=== PATIENT | male | born 1965 | race Two or more races ===

== ENCOUNTER 2020-05-06 20:53 | Inpatient (IN) | payer MEDICAID, OTHER ==
[~2020-05-06] VITALS: Ht 170.2 cm; Wt 61.7 kg
[2020-05-06] MEDS ORDERED: SODIUM CHLORIDE 0.9% 1,000 ML IV ONE (21:22)
[2020-05-06] MEDS ORDERED: ONDANSETRON HCL 4MG/2ML INJ IV STA (21:22)
[2020-05-06] MEDS ORDERED: ACTIVATED CHARCOAL 50 G/240 ML TUBE PO ONE (21:30)
[2020-05-06 21:49] LABS: CHLORIDE 102 mEq/L (98-107)
[2020-05-06 21:54] LABS: ETHANOL BLOOD < 10 mg/dL
[2020-05-06 23:08] LABS: CLARITY URINE CLEAR (CLEAR); COLOR URINE YELLOW (YELLOW); KETONES URINE NEGATIVE (NEGATIVE); LEUKOCYTE ESTERASE URINE NEGATIVE (NEGATIVE); NITRITE URINE NEGATIVE (NEGATIVE); OCCULT BLOOD URINE NEGATIVE (NEGATIVE); PH URINE 6.5 (4.5-8.0); PROTEIN URINE TRACE (NEGATIVE); SPECIFIC GRAVITY URINE 1.029 (1.005-1.030)
[2020-05-06 23:28] LABS: *AMPHETAMINES SCREEN URINE PRESUMTIVE POSITIVE (NEGATIVE); *BARBITURATES SCREEN URINE NEGATIVE (NEGATIVE); *BENZODIAZEPINES SCREEN URINE NEGATIVE (NEGATIVE); *COCAINE SCREEN URINE NEGATIVE (NEGATIVE); METHADONE URINE SCREEN NEGATIVE (NEGATIVE)
[2020-05-06 23:29] LABS: CANNABINOID URINE SCREEN NEGATIVE (NEGATIVE); OPIATES URINE SCREEN NEGATIVE (NEGATIVE); PHENCYCLIDINE URINE SCREEN NEGATIVE (NEGATIVE)
[2020-05-06 23:31] LABS: BASOPHILS % 0.5 % (0.0-2.0); EOSINOPHILS % 1.1 % (0.0-5.0); HEMATOCRIT. 42.6 % (42.0-52.0); HEMOGLOBIN. 15.1 g/dL (14.0-18.0); LYMPHOCYTES % 18.2 % (20.0-50.0); MEAN CORPUSCULAR HEMOGLOBIN 33.4 pg (28.0-32.0); MEAN CORPUSCULAR VOLUME 94.4 fL (80.0-94.0); MEAN PLATELET VOLUME 11.6 fl (7.4-10.4); MONOCYTES % 10.7 % (2.0-8.0); NEUTROPHILS % 69.5 % (40.0-76.0); RED BLOOD CELL COUNT 4.52 mill/uL (4.7-6.1); RED CELL DISTRIBUTION WIDTH 12.3 % (11.6-14.6)
[2020-05-06 23:39] LABS: PLATELET 37 x1000/uL (130-400)
[2020-05-07] MEDS ORDERED: PROPOFOL 10MG/ML 100ML 100 ML IV SCH
[2020-05-07] MEDS ORDERED: LACTULOSE 20G/30ML UDC PO ONE (00:15)
[2020-05-07] MEDS ORDERED: ASPIRIN 81MG TABLET PO ONE (00:15)
[2020-05-07 02:08] LABS: PLATELET ESTIMATE MARKEDLY DECREASED
[2020-05-07] MEDS ORDERED: DEXTROSE 50% WATER 50ML SYRINGE IV PRN (20:45)
[2020-05-07] MEDS: BLOOD SUGAR DIAGNOSTIC STRIP TEST SCH (21:00)
[2020-05-07] MEDS: ARIPIPRAZOLE 5MG TABLET PO SCH (21:42)
[2020-05-07] MEDS: RISPERIDONE 1MG TABLET PO SCH (21:42)
[2020-05-07] MEDS: INSULIN LISPRO 100 UNITS/ML SUBCUT SCH (22:16)
[2020-05-07 23:52] VITALS: BP 110/76
[2020-05-08] MEDS ORDERED: ESCI5TAB12 PO (02:11)
[2020-05-08] MEDS ORDERED: BENA10TA74 PO (02:12)
[2020-05-08] MEDS ORDERED: VALA500T55 PO (02:12)
[2020-05-08] MEDS ORDERED: OMEG-31 PO (02:15)
[2020-05-08] MEDS ORDERED: METF-815 PO (02:15)
[2020-05-08] MEDS ORDERED: RISP2TAB22 PO (02:16)
[2020-05-08] MEDS ORDERED: FAMO20TA8 PO (02:18)
[2020-05-08] MEDS ORDERED: BICT1TAB PO (02:19)
[2020-05-08] MEDS ORDERED: ATOR10TA69 PO (02:20)
[2020-05-08] MEDS ORDERED: ARIP10TA16 PO (02:21)
[2020-05-08 04:00] VITALS: BP 101/69
[2020-05-08] MEDS: BLOOD SUGAR DIAGNOSTIC STRIP TEST SCH ×2 (06:16→12:36)
[2020-05-08] MEDS: INSULIN LISPRO 100 UNITS/ML SUBCUT SCH ×2 (06:46→12:39)
[2020-05-08] MEDS ORDERED: METFORMIN HCL 500MG TABLET PO SCH (07:40)
[2020-05-08 08:00] VITALS: BP 106/71
[2020-05-08] MEDS: RISPERIDONE 1MG TABLET PO SCH ×2 (09:00→09:37)
[2020-05-08] MEDS: ARIPIPRAZOLE 5MG TABLET PO SCH ×2 (09:00→09:36)
[2020-05-08] MEDS: CITALOPRAM HYDROBROMIDE 10MG TABLET PO SCH ×2 (09:00→09:37)
[2020-05-08 09:06] LABS: T4 FREE 1.1 ng/dL (0.76-1.46)
[2020-05-08 11:45] VITALS: BP 107/68
[2020-05-08] MEDS ORDERED: METFORMIN HCL 2000 MG PO SCH (13:00)
[2020-05-08] MEDS ORDERED: FISH OIL/OMEGA-3 FATTY ACIDS 1000MG CAPSULE PO SCH (13:00)
[2020-05-08] MEDS ORDERED: MEDICATION NOT ON FORMULARY EA (Bictegrav/Emtricit/Tenofov Ala (Biktarvy 50-200-25 mg Ta PO SCH (13:00)
[2020-05-08] MEDS ORDERED: BENAZEPRIL 10MG TABLET PO SCH (13:00)
[2020-05-08] MEDS ORDERED: ATORVASTATIN CALCIUM 10MG TABLET PO SCH (13:00)
[2020-05-08] MEDS ORDERED: FAMOTIDINE 20MG TABLET PO SCH (13:08)
[2020-05-08] MEDS ORDERED: GLIPIZIDE XL 2.5MG TABLET PO SCH (14:30)
[2020-05-08] MEDS ORDERED: VALACYCLOVIR HCL 500MG TABLET PO SCH (15:00)
[2020-05-08 16:09] VITALS: BP 106/64
[2020-05-08] MEDS ORDERED: MEDICATION NOT ON FORMULARY EA (Escitalopram Oxalate 5 MG) PO SCH (21:00)
[2020-05-08] MEDS ORDERED: RISPERIDONE 1MG TABLET PO SCH (21:00)
[2020-05-08] MEDS ORDERED: ARIPIPRAZOLE 10 MG PO SCH (21:00)
[2020-05-08] MEDS ORDERED: ARIPIPRAZOLE 5MG TABLET PO SCH (21:00)
[2020-05-08] MEDS ORDERED: CITALOPRAM HYDROBROMIDE 10MG TABLET PO SCH (21:00)
== END 2020-05-08 16:55 | disposition home or self-care (01) | DRG 812 ==
LOC: ER 20:53 → EDBEDREQ 05-07 00:10 → EDBEDREQTM 05-07 00:10 → EDBEDREQDT 05-07 00:10 → EDBEDREQ 05-07 00:11 → 8WST 05-07 13:30 → EDBEDREQ 05-07 13:36 → ENRESERV 05-07 22:42
PROVIDERS: ADMIT Family Medicine; ATTEND Family Medicine
DX: T43.621A Poisoning by amphetamines, accidental (unintentional), initial encounter (principal); I10 Essential (primary) hypertension; E78.5 Hyperlipidemia, unspecified; F32.9 Major depressive disorder, single episode, unspecified; E11.9 Type 2 diabetes mellitus without complications; D69.6 Thrombocytopenia, unspecified; F15.90 Other stimulant use, unspecified, uncomplicated; E44.1 Mild protein-calorie malnutrition; F10.10 Alcohol abuse, uncomplicated; Y90.9 Presence of alcohol in blood, level not specified; F17.210 Nicotine dependence, cigarettes, uncomplicated; G92 Toxic encephalopathy; Z83.3 Family history of diabetes mellitus; Z68.21 Body mass index [BMI] 21.0-21.9, adult; Y92.89 Other specified places as the place of occurrence of the external cause; Z91.19 Patient's noncompliance with other medical treatment and regimen; Z79.899 Other long term (current) drug therapy; Z79.82 Long term (current) use of aspirin
CPT/HCPCS: 36415; 71045; 80053; 80061; 80305; 80307; 80320; 80329; 81003; 82140; 82962; 83036; 83605; 83880; 84439; 84443; 84484; 85025; 93005; 93306; 96361; 96374; 99285; J1815; J2405; J7030; G0480